=== PATIENT | female | born 1945 | race Caucasian/White ===

== ENCOUNTER → 2017-02-06 08:27 | Outpatient (CLI) | payer MEDICARE, BC ==
[2011-10-11 15:38] VITALS: BMI 22.3
== END ==
LOC: D.MAMMO 08:27
DX: Z12.31 Encounter for screening mammogram for malignant neoplasm of breast (principal)

== ENCOUNTER → 2018-10-16 18:03 | Outpatient (CLI) | payer MEDICARE, BC ==
[2011-10-11 15:38] VITALS: BMI 22.3
== END | disposition home or self-care (01) ==
LOC: D.US 14:30 → D.MAMMO 15:15 → D.US 18:03
DX: Z12.31 Encounter for screening mammogram for malignant neoplasm of breast (principal)

== ENCOUNTER → 2019-08-27 08:41 | Outpatient (CLI) | payer MEDICARE, BC ==
[2011-10-11 15:38] VITALS: BMI 22.3
== END | disposition home or self-care (01) ==
LOC: D.HCCECHO 08:41
PROVIDERS: ATTEND Internal Medicine Cardiovascular Disease
DX: I34.0 Nonrheumatic mitral (valve) insufficiency (principal)